=== PATIENT | male | born 1965 | race Caucasian/White ===

== ENCOUNTER 2018-07-07 09:04 | Day surgery (SDC) | payer OTHER ==
[~2018-07-07] VITALS: Ht 185.4 cm; Wt 83.8 kg
[2018-07-07 11:14] VITALS: Ht 185.4 cm; Wt 83.8 kg
[2018-07-07] MEDS ORDERED: ALLOPURINOL (11:30)
[2018-07-07] MEDS ORDERED: ATENOLOL (11:30)
[2018-07-07] MEDS ORDERED: TRIGLYCERIDE MED (11:31)
[2018-07-07] MEDS ORDERED: BENAZEPRIL (11:31)
[2018-07-07] MEDS ORDERED: IBUPROFEN (11:58)
[2018-07-07 12:03] VITALS: BP 115/75; PULSE 69; RESP 16
--- NOTE | 2018-07-07 12:23 | PREAC ---
Date/Time of Note Date/Time of Note DATE: 07/07/18 TIME: 12:20 Anesthesia Eval and Record Evaluation Time Pre-Procedure Interview DATE: 07/07/18 TIME: 12:20 Age 52 Sex male NPO: 8 hrs Preoperative diagnosis Screening Planned procedure Colonoscopy Past Medical History Past Medical History: Includes Cardio: HTN, Dyslipidemia Endo: Other (Hyperurivemia) GI: GERD Surgery & Anesthesia Issues No known issue Meds Anticoagulation: No Beta Angelia within 24 hr: No Reason Beta Angelia not given: Pt. not on B-Angelia Reported Medications [Ibuprofen] No Conflict Check 07/07/18 [Triglyceride Med] No Conflict Check 07/07/18 [Benazepril] No Conflict Check 07/07/18 [Atenolol] No Conflict Check 07/07/18 [Allopurinol] No Conflict Check 07/07/18 Meds reviewed: Yes Allergies Coded Allergies: No Known Allergy (Unverified , 07/07/18) Allergies Reviewed: Yes Labs/Studies Labs Reviewed: Reviewed by anesthesiologist test: N/A Studies: ECG (n/a), CXR (n/a) Pre-procedure Exam Last vitals Vital Signs Date Temp Pulse Resp B/P (MAP) Pulse Ox O2 O2 Flow FiO2 Time Delivery Rate 07/07/18 98.5 69 16 115/75 100 Room Air 12:03 (88) Airway: Adequate mouth opening, Adequate thyromental dist Mallampati: Mallampati II Teeth: Normal Lung: Normal Heart: Normal ASA Physical Status ASA physical status: 3 Emergency: None Planned Anesthetic General/MAC: MAC Planned Pain Management Parenteral pain med Pre-operative Attestations Prior to commencing anesthesia and surgery, the patient was re-evaluated, there was verification of: *The patient's identity *The results of appropriate recent lab work and preoperative vital signs *The above evaluation not changing prior to induction *Anesthetic plan, risk benefits, alternative and complications discussed with patient/family; questions answered; patient/family understands, accepts and wishes to proceed. PHYLICIA ESCALANTE MD Jul 07, 2018 12:23
[2018-07-07] MEDS ORDERED: FENTAnyl 50 MCG/ML VIAL IV PRN ×2 (12:30)
[2018-07-07] MEDS ORDERED: morphine (1 MG/ML) 10ML SYRINGE IV PRN ×2 (12:30)
[2018-07-07] MEDS ORDERED: METOCLOPRAMIDE 10 MG INJ IV PRN (12:30)
[2018-07-07] MEDS ORDERED: LABETALOL HCL 20MG INJ IV PRN (12:30)
[2018-07-07] MEDS ORDERED: ALBUTEROL 0.083% (NEB) 2.5 MG/3 ML AMP HHN PRN (12:30)
[2018-07-07] MEDS ORDERED: ONDANSETRON 4 MG INJ IV PRN (12:30)
[2018-07-07] MEDS ORDERED: EPHEDrine SULFATE 50 MG/5 ML SYG IV PRN (12:30)
[2018-07-07] MEDS ORDERED: hydrALAzine 20 MG INJ IV PRN (12:30)
[2018-07-07] MEDS ORDERED: LEVALBUTEROL (NEB) 0.63 MG/3 ML AMP HHN PRN (12:30)
--- NOTE | 2018-07-07 14:24 | PAC ---
Date/Time of Note Date/Time of Note DATE: 07/07/18 TIME: 14:24 Post-Anesthesia Notes Post-Anesthesia Note Last documented vital signs Vital Signs Date Temp Pulse Resp B/P (MAP) Pulse Ox O2 O2 Flow FiO2 Time Delivery Rate 07/07/18 98.5 69 16 115/75 100 Room Air 14:30 (88) Activity: WNL Respiratory function: WNL Cardiovascular function: WNL Mental status: Baseline Pain reasonably controlled: Yes Hydration appropriate: Yes Nausea/Vomiting absent: Yes PHYLICIA ESCALANTE MD Jul 07, 2018 14:24
[2018-07-07] MEDS ORDERED: EPHEDrine SULFATE 50 MG/5 ML SYG ONE (14:36)
[2018-07-07] MEDS ORDERED: PROPOFOL 100 ML ONE (14:36)
[2018-07-07] MEDS ORDERED: PHENYLephrine (100 MCG/ML) 5ML SYG ONE (14:41)
[2018-07-07 14:45] VITALS: BP 119/80; PULSE 70; RESP 24
--- NOTE | 2018-07-14 11:30 | HPN ---
Date/Time of Note Date/Time of Note DATE: 07/14/18 TIME: 11:30 Interval H&P Admission Note Pt. seen H&P reviewed: No system changes ANNETTA WILL MD Jul 14, 2018 11:30
== END 2018-07-07 16:09 | disposition home or self-care (01) ==
LOC: GIL 09:04
PROVIDERS: ATTEND Internal Medicine Gastroenterology
DX: Z12.11 Encounter for screening for malignant neoplasm of colon (principal); D12.5 Benign neoplasm of sigmoid colon; K62.1 Rectal polyp; K57.31 Diverticulosis of large intestine without perforation or abscess with bleeding; D12.4 Benign neoplasm of descending colon; K29.60 Other gastritis without bleeding
CPT/HCPCS: 43239; 45380; 88305; 88312; J2370; Z7610